=== PATIENT | male | born 1960 | race Caucasian/White ===

== ENCOUNTER 2018-01-25 16:20 | Day surgery (SDC) | payer BC ==
[~2018-01-25 16:20] MED LIST: Bupivacaine 0.75% 10 ML AMP ONE; CEFAZOLIN 1 GM VIAL ONE; Lidocaine 1% PF 5 ML VIAL ONE; Lidocaine 4% PF 5 ML AMP ONE; Maxitrol 0.1% Opth Oint 3.5 GM TUBE ONE; PROPOFOL 200 MG/20 ML VIAL ONE; Triamcinolone 40 MG/ML VIAL ONE
[2018-01-25] MEDS ORDERED: Fluorouracil 100 MG, Enoxaparin Sodium 25 MG, EPINEPHrine 0.3 MG in Ophthalmic Irrigati... IVPB SCH (16:45)
[2018-01-25] MEDS ORDERED: Cyclopentolate 1% Opth Drop 2 ML BOT ONE (16:53)
[2018-01-25] MEDS ORDERED: Phenylephrine 2.5% Ophth Soln 5 ML BOT ONE (16:53)
[2018-01-25] MEDS ORDERED: Fentanyl 100 MCG/2 ML VIAL ONE (17:20)
[2018-01-25] MEDS ORDERED: Midazolam HCl 2 mg/2 ml Vial ONE (17:20)
--- NOTE | 2018-01-25 23:05 | OP ---
DATE OF PROCEDURE: 01/25/2018 PREOPERATIVE DIAGNOSIS: Rhegmatogenous retinal detachment, left eye. POSTOPERATIVE DIAGNOSIS: Rhegmatogenous retinal detachment, left eye. PROCEDURES PERFORMED: Pars plana vitrectomy and retinal detachment repair, left eye. SURGEON: Joe Fallon MD ANESTHESIA: Local with monitored anesthesia care. PROCEDURE IN DETAIL: The patient was identified in the preoperative holding area. Appropriate infor med consent for the planned surgical procedure on the left eye had been obtained. The patient was tr ansported to the operative suite. Appropriate cardiopulmonary monitoring was established. Local ane sthesia was obtained using retrobulbar and modified Van Lint lid block using a 50:50 mixture of 4% li docaine and 0.75% bupivacaine. The patient was prepped and draped in usual sterile manner for ophtha lmic surgery on the left eye. Lid speculum was placed in the left eye. 25-gauge trocars were placed in conjunctiva and sclera supratemporally, inferotemporally, and supranasally. Infusion line was pl aced inferotemporally. Light pipe and vitreous cutter were inserted into the eye. Core vitrectomy w as performed. Special attention was turned to the tears at 11 o'clock and 2 o'clock. Vitreous was c arefully removed from the areas of the tears. 360 laser was placed using endolaser delivery device. Complete air fluid exchange was performed with 10 minutes being allowed for fluid to drain posterior ly. Fluid was drained through the pre-existing tear at 2 o'clock. 28% sulfur hexafluoride gas was i nfused into the eye. Trocars were removed and eye was noted to retain pressure well. Retrobulbar Ke nalog and subconjunctival Ancef were placed. Atropine and antibiotic ointment were placed, and the e ye was patched and shielded. The patient was taken to the postoperative recovery unit in good condit ion having suffered no immediate perioperative complications. DISCHARGE INSTRUCTIONS: The patient was instructed to keep the patch and shield on; avoid lifting or bending; and follow up in the morning with Dr. Fallon.
== END 2018-01-25 19:08 | disposition home or self-care (01) ==
LOC: SDC 16:20
PROVIDERS: ATTEND Ophthalmology Retina Specialist
PROC: 08T53ZZ Resection of Left Vitreous, Percutaneous Approach (ICD-10-PCS; principal; 2018-01-25)
DX: H33.002 Unspecified retinal detachment with retinal break, left eye (principal); Z88.5 Allergy status to narcotic agent
CPT/HCPCS: 67025; J0171; J0690; J1650; J2001; J2250; J2704; J3010; J3301; J3490; J9190

== ENCOUNTER 2018-10-12 08:16 | Day surgery (SDC) | payer BC ==
[2018-10-11 13:40] VITALS: BMI 39.9
[2018-10-12 08:43] LABS: Prothrombin Time 13.4 SEC (12.0-14.7)
[2018-10-12 08:44] LABS: PTT 45.8 SEC (22.9-36.1)
[2018-10-12 09:21] VITALS: BP 120/81; TEMP 97.6
--- NOTE | 2018-10-12 11:30 | CT ---
CT GUIDED BONE MARROW ASPIRATION AND BONE BIOPSY: HISTORY: A 58-year-old male with history of leukocytosis. TECHNIQUE: Informed consent was obtained from the patient. The right iliac wing was visualized using CT guidance . The overlying skin was prepped and draped in the usual sterile manner. A 1% lidocaine solution was used to anesthetize the overlying soft tissues. The patient was given IV conscious sedation using 25 mcg of fentanyl and 1 mg of Versed. Using an 11-gauge Yellow[employer]uleshidi bone needle and bone marrow/bone biopsy tray the right iliac wing was acce ssed using CT guidance. Bone marrow aspiration was performed followed by bone biopsy. Specimen given to pathology. IMPRESSION: Successful CT-guided right iliac wing biopsy and bone marrow aspiration. Transcribed Date/Time: 10/12/2018 12:43 PM
== END 2018-10-12 12:00 | disposition home or self-care (01) ==
LOC: CT 08:16
PROVIDERS: ATTEND Internal Medicine Hematology & Oncology
PROC: 07DR3ZX Extraction of Iliac Bone Marrow, Percutaneous Approach, Diagnostic (ICD-10-PCS; principal; 2018-10-12)
DX: D72.828 Other elevated white blood cell count (principal); D75.89 Other specified diseases of blood and blood-forming organs; I25.2 Old myocardial infarction; I10 Essential (primary) hypertension; I25.10 Atherosclerotic heart disease of native coronary artery without angina pectoris; E03.9 Hypothyroidism, unspecified; E11.40 Type 2 diabetes mellitus with diabetic neuropathy, unspecified; G60.9 Hereditary and idiopathic neuropathy, unspecified; E66.9 Obesity, unspecified; Z68.41 Body mass index [BMI] 40.0-44.9, adult; Z79.82 Long term (current) use of aspirin; Z79.84 Long term (current) use of oral hypoglycemic drugs; Z79.899 Other long term (current) drug therapy; Z88.5 Allergy status to narcotic agent; Z88.8 Allergy status to other drugs, medicaments and biological substances
CPT/HCPCS: 20225; 36415; 77012; 85097; 85610; 85730; 88121; 88184; 88237; 88305; 88311; 88313

== ENCOUNTER 2020-07-22 12:50 | Day surgery (SDC) | payer BC ==
[2020-07-22] MEDS ORDERED: diphenhydrAMINE 25 MG CAP PO SCH (13:00)
[2020-07-22] MEDS ORDERED: Hydrocortisone Sod Succ/PF 100 mg/2 ml Vial IVP SCH (13:00)
[2020-07-22] MEDS ORDERED: Acetaminophen 500 MG TAB PO SCH (13:00)
[2020-07-22] MEDS ORDERED: Sodium Chloride 0.9% 20 ML ONE (13:06)
[2020-07-22 13:47] VITALS: BP 119/69; TEMP 97.6
== END 2020-07-22 14:31 | disposition home or self-care (01) ==
LOC: ONC/OP 12:50
PROVIDERS: ATTEND Internal Medicine Hematology & Oncology
PROC: 30233R1 Transfusion of Nonautologous Platelets into Peripheral Vein, Percutaneous Approach (ICD-10-PCS; principal; 2020-07-22)
DX: D69.6 Thrombocytopenia, unspecified (principal); Z88.5 Allergy status to narcotic agent; Z88.8 Allergy status to other drugs, medicaments and biological substances; C93.10 Chronic myelomonocytic leukemia not having achieved remission
CPT/HCPCS: 36430; 80053; 80197; 83735; 86850; 86900; 86901; 87497; 96374; J1642; J1720; P9035; Q0163

== ENCOUNTER 2020-07-28 14:40 | Day surgery (SDC) | payer BC ==
[2020-07-28] MEDS ORDERED: diphenhydrAMINE 25 MG CAP PO SCH (15:15)
[2020-07-28] MEDS ORDERED: Acetaminophen 500 MG TAB PO SCH (15:15)
[2020-07-28] MEDS ORDERED: Sodium Chloride 0.9% 20 ML ONE (15:19)
[2020-07-28 18:44] VITALS: BP 130/72; TEMP 97.9
== END 2020-07-28 18:46 | disposition home or self-care (01) ==
LOC: ONC/OP 14:40
PROVIDERS: ATTEND Internal Medicine Hematology & Oncology
PROC: 30233R1 Transfusion of Nonautologous Platelets into Peripheral Vein, Percutaneous Approach (ICD-10-PCS; principal; 2020-07-28)
PROC: 30233N1 Transfusion of Nonautologous Red Blood Cells into Peripheral Vein, Percutaneous Approach (ICD-10-PCS; principal; 2020-07-28)
DX: D69.6 Thrombocytopenia, unspecified (principal); D64.9 Anemia, unspecified; Z88.5 Allergy status to narcotic agent; Z88.8 Allergy status to other drugs, medicaments and biological substances; C93.10 Chronic myelomonocytic leukemia not having achieved remission
CPT/HCPCS: 36430; 80053; 80197; 83735; 86850; 86900; 86901; 87497; J1642; P9016; P9035; Q0163

== ENCOUNTER 2020-07-31 14:47 | Day surgery (SDC) | payer BC ==
[2020-07-31] MEDS ORDERED: diphenhydrAMINE 25 MG CAP PO PRN (15:43)
[2020-07-31] MEDS ORDERED: Acetaminophen 500 MG TAB PO PRN (15:43)
[2020-07-31] MEDS ORDERED: Sodium Chloride 0.9% 10 ML ONE (18:47)
[2020-07-31 19:31] VITALS: BP 137/90; TEMP 97.7
== END 2020-07-31 19:42 | disposition home or self-care (01) ==
LOC: ONC/OP 14:47
PROVIDERS: ATTEND Internal Medicine Hematology & Oncology
PROC: 30233N1 Transfusion of Nonautologous Red Blood Cells into Peripheral Vein, Percutaneous Approach (ICD-10-PCS; principal; 2020-07-31)
DX: D64.9 Anemia, unspecified (principal); D69.6 Thrombocytopenia, unspecified; Z88.5 Allergy status to narcotic agent; Z88.8 Allergy status to other drugs, medicaments and biological substances; C93.10 Chronic myelomonocytic leukemia not having achieved remission
CPT/HCPCS: 36430; 80053; 80197; 83735; 86850; 86900; 86901; 87497; P9016; Q0163

== ENCOUNTER 2020-08-01 10:12 | Day surgery (SDC) | payer BC ==
[2020-08-01] MEDS ORDERED: diphenhydrAMINE 25 MG CAP ONE (10:31)
[2020-08-01] MEDS ORDERED: Acetaminophen 500 MG TAB ONE (10:31)
[2020-08-01] MEDS ORDERED: diphenhydrAMINE 25 MG CAP PO SCH (11:15)
[2020-08-01] MEDS ORDERED: Acetaminophen 500 MG TAB PO SCH (11:15)
[2020-08-01 12:52] VITALS: BP 139/83; TEMP 97.7
== END 2020-08-01 16:00 ==
LOC: ONC/OP 10:12
PROVIDERS: ATTEND Internal Medicine Hematology & Oncology
PROC: 30233R1 Transfusion of Nonautologous Platelets into Peripheral Vein, Percutaneous Approach (ICD-10-PCS; principal; 2020-08-01)
DX: D69.6 Thrombocytopenia, unspecified (principal); Z88.5 Allergy status to narcotic agent; Z88.8 Allergy status to other drugs, medicaments and biological substances
CPT/HCPCS: 36430; 86850; 86900; 86901; P9016; P9035; Q0163

== ENCOUNTER 2020-08-03 13:08 | Day surgery (SDC) | payer BC ==
[2020-08-03] MEDS ORDERED: Acetaminophen 500 MG TAB PO PRN (13:20)
[2020-08-03] MEDS ORDERED: diphenhydrAMINE 25 MG CAP PO PRN (13:21)
[2020-08-03] MEDS ORDERED: Sodium Chloride 0.9% 20 ML ONE (13:48)
[2020-08-03 14:17] VITALS: TEMP 98
[2020-08-03 16:15] VITALS: BP 129/69
== END 2020-08-03 16:14 | disposition home or self-care (01) ==
LOC: ONC/OP 13:08
PROVIDERS: ATTEND Internal Medicine Hematology & Oncology
PROC: 30233N1 Transfusion of Nonautologous Red Blood Cells into Peripheral Vein, Percutaneous Approach (ICD-10-PCS; principal; 2020-08-03)
DX: D64.9 Anemia, unspecified (principal); D69.6 Thrombocytopenia, unspecified; Z88.5 Allergy status to narcotic agent; Z88.8 Allergy status to other drugs, medicaments and biological substances; C93.10 Chronic myelomonocytic leukemia not having achieved remission
CPT/HCPCS: 36430; 80197; 86850; 86900; 86901; P9016; Q0163

== ENCOUNTER 2020-08-04 08:58 | Day surgery (SDC) | payer BC ==
[2020-08-04] MEDS ORDERED: Sodium Chloride 0.9% 0 ML ONE (09:44)
[2020-08-04] MEDS ORDERED: Acetaminophen 500 MG TAB ONE (10:06)
[2020-08-04] MEDS ORDERED: diphenhydrAMINE 25 MG CAP ONE (10:07)
--- NOTE | 2020-08-04 10:09 | CT ---
Head CT with and without contrast: 08/04/2020 COMPARISON: None HISTORY: Vomiting, leukemia, evaluate for intracranial hemorrhage TECHNIQUE: Axial CT imaging obtained at 2.5 mm intervals from the vertex through the skull base with and without contrast. Coronal and sagittal reformatted imaging obtained. FINDINGS: There is mild mucosal thickening involving the alveolar recess of the maxillary sinus on th e right. No displaced calvarial fracture. No worrisome lytic or blastic bone lesion. The noncontrast enhanced head CT imaging demonstrates a small hyperdense subdural collection anterior to and lateral to the temporal lobe in the middle cranial fossa and just superior to the middle cranial fossa, best seen on axial image 28, measuring approximately 7-8 mm in transverse dimension. The postcontrast imaging demonstrates no abnormal enhancement within the brain parenchyma. IMPRESSION: Small subdural hematoma in the right temporal region measuring up to 7-8 mm. Results rela yed to Dr. Chacon via [place] [facility] at 10:00 AM 08/04/2020
[2020-08-04] MEDS ORDERED: Iopamidol 370 76% 100 ML VIAL ONE (10:26)
[2020-08-04] MEDS ORDERED: diphenhydrAMINE 25 MG CAP PO PRN (10:29)
[2020-08-04] MEDS ORDERED: Acetaminophen 500 MG TAB PO PRN (10:29)
[2020-08-04 12:07] VITALS: BP 107/65; TEMP 97.8
== END 2020-08-04 12:07 | disposition home or self-care (01) ==
LOC: CT 08:58
PROVIDERS: ATTEND Internal Medicine Hematology & Oncology
PROC: 30233R1 Transfusion of Nonautologous Platelets into Peripheral Vein, Percutaneous Approach (ICD-10-PCS; principal; 2020-08-04)
DX: D69.6 Thrombocytopenia, unspecified (principal); D64.9 Anemia, unspecified; C95.90 Leukemia, unspecified not having achieved remission; S06.5X9A Traumatic subdural hemorrhage with loss of consciousness of unspecified duration, initial encounter; Z88.5 Allergy status to narcotic agent; Z88.8 Allergy status to other drugs, medicaments and biological substances
CPT/HCPCS: 36430; 70470; 86850; 86900; 86901; J1642; P9016; P9035; Q0163; Q9967

== ENCOUNTER 2020-08-10 14:57 | Day surgery (SDC) | payer BC ==
[2020-08-10] MEDS ORDERED: Sodium Chloride 0.9% 30 ML ONE (15:02)
[2020-08-10] MEDS ORDERED: Acetaminophen 500 MG TAB PO SCH (15:30)
[2020-08-10] MEDS ORDERED: diphenhydrAMINE 25 MG CAP PO SCH (15:30)
[2020-08-10 16:53] VITALS: BP 126/66; TEMP 97.9
== END 2020-08-10 17:03 | disposition home or self-care (01) ==
LOC: ONC/OP 14:57
PROVIDERS: ATTEND Internal Medicine Hematology & Oncology
PROC: 30233R1 Transfusion of Nonautologous Platelets into Peripheral Vein, Percutaneous Approach (ICD-10-PCS; principal; 2020-08-10)
DX: D69.6 Thrombocytopenia, unspecified (principal); Z88.5 Allergy status to narcotic agent; Z88.8 Allergy status to other drugs, medicaments and biological substances; C93.10 Chronic myelomonocytic leukemia not having achieved remission
CPT/HCPCS: 36430; 80053; 80197; 83735; 85025; 86850; 86900; 86901; 87497; J1642; P9035; Q0163

== ENCOUNTER 2020-08-17 11:23 | Day surgery (SDC) | payer BC ==
[2020-08-17] MEDS ORDERED: Acetaminophen 500 MG TAB PO SCH (12:00)
[2020-08-17] MEDS ORDERED: diphenhydrAMINE 25 MG CAP PO SCH (12:00)
[2020-08-17] MEDS ORDERED: Sodium Chloride 0.9% 20 ML ONE (12:02)
[2020-08-17 15:22] VITALS: BP 137/70; TEMP 98
== END 2020-08-17 15:24 | disposition home or self-care (01) ==
LOC: ONC/OP 11:23
PROVIDERS: ATTEND Internal Medicine Hematology & Oncology
PROC: 30233R1 Transfusion of Nonautologous Platelets into Peripheral Vein, Percutaneous Approach (ICD-10-PCS; principal; 2020-08-17)
PROC: 30233N1 Transfusion of Nonautologous Red Blood Cells into Peripheral Vein, Percutaneous Approach (ICD-10-PCS; principal; 2020-08-17)
DX: D69.6 Thrombocytopenia, unspecified (principal); D64.9 Anemia, unspecified; Z88.5 Allergy status to narcotic agent; Z88.8 Allergy status to other drugs, medicaments and biological substances
CPT/HCPCS: 36430; 86850; 86900; 86901; P9016; P9035; Q0163

== ENCOUNTER 2020-08-19 11:12 | Day surgery (SDC) | payer BC ==
[2020-08-19] MEDS ORDERED: Sodium Chloride 0.9% 20 ML ONE (11:25)
[2020-08-19] MEDS ORDERED: Acetaminophen 500 MG TAB PO SCH (11:45)
[2020-08-19] MEDS ORDERED: diphenhydrAMINE 25 MG CAP PO SCH (11:45)
[2020-08-19 13:38] VITALS: BP 147/69; TEMP 98.2
== END 2020-08-19 13:38 | disposition home or self-care (01) ==
LOC: ONC/OP 11:12
PROVIDERS: ATTEND Internal Medicine Hematology & Oncology
PROC: 30233R1 Transfusion of Nonautologous Platelets into Peripheral Vein, Percutaneous Approach (ICD-10-PCS; principal; 2020-08-19)
DX: D69.6 Thrombocytopenia, unspecified (principal); D64.9 Anemia, unspecified; Z88.5 Allergy status to narcotic agent; Z88.8 Allergy status to other drugs, medicaments and biological substances
CPT/HCPCS: 36430; 86850; 86900; 86901; P9035; Q0163

== ENCOUNTER 2020-08-26 14:13 | Day surgery (SDC) | payer BC ==
[2020-08-26] MEDS ORDERED: Acetaminophen 500 MG TAB PO SCH (14:30)
[2020-08-26] MEDS ORDERED: diphenhydrAMINE 25 MG CAP PO SCH (14:45)
[2020-08-26 19:42] VITALS: BP 131/66; TEMP 98.1
[2020-08-26 20:17] LABS: Hemoglobin 7.6 g/dL (14.0-18.0); Mean Corpuscular HGB CONC 34.9 g/dL (32.0-36.0); Mean Corpuscular Hemoglobin 32.1 pg (27.0-31.0); Mean Corpuscular Volume 91.8 fL (78.0-98.0); Mean Platelet Volume 12.5 fL (7.4-10.4); Platelet Count 23 thou/uL (130-400); RBC Distribution Width 14.5 % (11.5-14.5); Red Blood Cell (RBC) Count 2.36 mill/uL (4.70-6.10); White Blood Cell (WBC) Count 3.6 thou/uL (4.8-10.8)
[2020-08-26 20:37] LABS: Anisocytosis SLIGHT = 6-15 cells (100X) (0-5/hpf); Band 20 % (5-11); Large Platelets SLIGHT; Lymphocytes 41 % (21-51); MDiff Complete? YES; Metamyelocyte 3 % (0-0); Monocytes 18 % (0-10); Myelocyte 3 % (0-0); Neutrophil 11 % (42-75); Nucleated RBC 6 % (0); Platelet Morphology Comment Appears Decreased; Polychromasia MODERATE = 3-4 cells (100X) (0-2/hpf); Reactive Lymphocytes 4 % (0-10); Tear Drops SLIGHT = 2-5 cells (100X) (0-1/hpf)
== END 2020-08-26 19:58 | disposition home or self-care (01) ==
LOC: ONC/OP 14:13 → ONC 14:13 → ONC/OP 19:58
PROVIDERS: ATTEND Internal Medicine Hematology & Oncology
PROC: 30233R1 Transfusion of Nonautologous Platelets into Peripheral Vein, Percutaneous Approach (ICD-10-PCS; principal; 2020-08-26)
PROC: 30233N1 Transfusion of Nonautologous Red Blood Cells into Peripheral Vein, Percutaneous Approach (ICD-10-PCS; principal; 2020-08-26)
DX: D69.6 Thrombocytopenia, unspecified (principal); D64.9 Anemia, unspecified; Z88.5 Allergy status to narcotic agent; Z88.8 Allergy status to other drugs, medicaments and biological substances
CPT/HCPCS: 36430; 85025; 86850; 86900; 86901; J1642; P9016; P9035; Q0163

== ENCOUNTER → 2020-08-31 | Day surgery (SDC) | payer BC ==
[~2020-08-31] MED LIST changes: +Acetaminophen 500 MG TAB PO SCH; -Bupivacaine 0.75% 10 ML AMP ONE; -CEFAZOLIN 1 GM VIAL ONE; -Lidocaine 1% PF 5 ML VIAL ONE; -Lidocaine 4% PF 5 ML AMP ONE; -Maxitrol 0.1% Opth Oint 3.5 GM TUBE ONE; -PROPOFOL 200 MG/20 ML VIAL ONE; +Sodium Chloride 0.9% 20 ML ONE; -Triamcinolone 40 MG/ML VIAL ONE; +diphenhydrAMINE 25 MG CAP PO SCH
[2020-08-31 13:44] VITALS: BP 127/66; TEMP 98.1
== END ==
LOC: ONC/OP 12:01
PROVIDERS: ATTEND Internal Medicine Hematology & Oncology
PROC: 30233R1 Transfusion of Nonautologous Platelets into Peripheral Vein, Percutaneous Approach (ICD-10-PCS; principal; 2020-08-31)
DX: D69.6 Thrombocytopenia, unspecified (principal); D64.9 Anemia, unspecified; Z88.5 Allergy status to narcotic agent; Z88.8 Allergy status to other drugs, medicaments and biological substances
CPT/HCPCS: 36430; 80053; 80197; 83735; 86850; 86900; 86901; 87497; P9035; Q0163

== ENCOUNTER 2020-09-03 07:23 | Emergency (ER) | payer BC ==
[2020-09-03 08:31] LABS: INR-International Normal Ratio 1.1; PTT 47.1 sec (22.9-36.1); Prothrombin Time 14.6 sec (12.0-14.7)
[2020-09-03 08:34] LABS: Albumin 3.8 g/dL (3.5-5.0)
[2020-09-03 08:35] LABS: Chloride 99 mmol/L (98-107); Potassium 3.3 mmol/L (3.5-5.1); Sodium 136 mmol/L (136-145)
[2020-09-03 08:36] LABS: Calcium 8.4 mg/dL (7.8-10.44); Glucose 149 mg/dL (70-105); Mean Corpuscular HGB CONC 31.9 g/dL (32.0-36.0); Mean Corpuscular Hemoglobin 28.8 pg (27.0-31.0); Mean Corpuscular Volume 90.2 fL (78.0-98.0); Mean Platelet Volume 18.5 fL (7.4-10.4); Platelet Count 8 thou/uL (130-400); Red Blood Cell (RBC) Count 2.76 mill/uL (4.70-6.10)
[2020-09-03 08:37] LABS: Protein, Total 5.8 g/dL (6.0-8.3)
[2020-09-03 08:38] LABS: Bilirubin, Total 1.7 mg/dL (0.2-1.2); Carbon Dioxide 24 mmol/L (22-29)
[2020-09-03 08:39] LABS: Alkaline Phosphatase 334 U/L (40-110)
[2020-09-03 08:40] LABS: Calc. Creatinine Clearance 0 mL/min (70-130)
[2020-09-03 08:41] LABS: BUN (Urea Nitrogen) 9 mg/dL (8.4-25.7)
[2020-09-03 08:42] LABS: ALT (SGPT) 13 U/L (8-55); AST (SGOT) 16 U/L (5-34)
[2020-09-03 08:43] LABS: Anion Gap 18 mmol/L (10-20)
[2020-09-03] MEDS ORDERED: Morphine 4 MG/ML VIAL ONE ×3 (09:06→14:36)
[2020-09-03] MEDS ORDERED: Ondansetron PF 4 MG/2 ML Vial ONE (09:06)
[2020-09-03 09:08] LABS: Anisocytosis SLIGHT = 6-15 cells (100X) (0-5/hpf); Band 16 % (5-11); Blast 5 % (0-0); Lymphocytes 50 % (21-51); MDiff Complete? YES; Metamyelocyte 3 % (0-0); Monocytes 8 % (0-10); Myelocyte 2 % (0-0); Neutrophil 15 % (42-75); Nucleated RBC 17 % (0); Platelet Morphology Comment Appears Decreased; Polychromasia SLIGHT = 2-3 cells (100X) (0-2/hpf); Reactive Lymphocytes 1 % (0-10); White Blood Cell (WBC) Count 5.5 thou/uL (4.8-10.8)
== END 2020-09-03 16:57 | disposition home or self-care (01) ==
LOC: ERS 07:23
DX: M54.5 Low back pain (principal); D69.6 Thrombocytopenia, unspecified; C95.90 Leukemia, unspecified not having achieved remission; I25.10 Atherosclerotic heart disease of native coronary artery without angina pectoris; I10 Essential (primary) hypertension; Z95.5 Presence of coronary angioplasty implant and graft; Z79.899 Other long term (current) drug therapy
CPT/HCPCS: 36430; 70450; 71045; 72131; 80053; 84484; 85025; 85610; 85730; 86850; 86900; 86901; 93005; 96374; 96375; 96376; J2270; J2405; P9035

== ENCOUNTER 2020-09-10 08:43 | Day surgery (SDC) | payer BC ==
[2020-09-10] MEDS ORDERED: diphenhydrAMINE 25 MG CAP PO PRN (09:00)
[2020-09-10] MEDS ORDERED: Acetaminophen 500 MG TAB PO PRN (09:00)
[2020-09-10] MEDS ORDERED: Sodium Chloride 0.9% 30 ML ONE (09:01)
[2020-09-10] MEDS ORDERED: traMADol HCl 50 MG TAB PO PRN (09:23)
[2020-09-10] MEDS ORDERED: HYDROmorphone 2 MG TAB PO SCH (09:30)
[2020-09-10 10:51] VITALS: TEMP 98.1
[2020-09-10 12:44] VITALS: BP 155/90
== END 2020-09-10 12:51 | disposition home or self-care (01) ==
LOC: ONC/OP 08:43
PROVIDERS: ATTEND Internal Medicine Hematology & Oncology
PROC: 30233R1 Transfusion of Nonautologous Platelets into Peripheral Vein, Percutaneous Approach (ICD-10-PCS; principal; 2020-09-10)
PROC: 30233N1 Transfusion of Nonautologous Red Blood Cells into Peripheral Vein, Percutaneous Approach (ICD-10-PCS; principal; 2020-09-10)
DX: C93.10 Chronic myelomonocytic leukemia not having achieved remission (principal); D63.0 Anemia in neoplastic disease; D69.6 Thrombocytopenia, unspecified; Z88.5 Allergy status to narcotic agent; Z88.8 Allergy status to other drugs, medicaments and biological substances
CPT/HCPCS: 36430; 86850; 86900; 86901; P9016; P9035; Q0163